=== PATIENT | male | born 1980 | race Caucasian/White ===

== ENCOUNTER 2020-08-02 21:13 | Emergency (ER) | payer OTHER ==
[~2020-08-02] VITALS: Ht 170.2 cm; Wt 74.8 kg
[2020-08-02] MEDS ORDERED: WELLBUTRIN 75 M75 M1 PO (21:37)
[2020-08-02] MEDS ORDERED: CEPHALEXIN500 MG PO (22:36)
[2020-08-02] MEDS ORDERED: NORCO5 PO (22:36)
[2020-08-02 23:08] VITALS: BP 123/81
== END 2020-08-02 23:08 | disposition home or self-care (01) ==
LOC: M.ERS 21:13
DX: S69.92XA Unspecified injury of left wrist, hand and finger(s), initial encounter (principal); W45.8XXA Other foreign body or object entering through skin, initial encounter; Y93.89 Activity, other specified; Y92.89 Other specified places as the place of occurrence of the external cause; Y99.8 Other external cause status